=== PATIENT | male | born 2000 | race African-American/Black ===

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

== ENCOUNTER 2020-01-09 | Emergency (ER) | payer SELFPAY | END 2020-01-09 03:35 | disposition home or self-care (01) | DX: S02.40CA Maxillary fracture, right side, initial encounter for closed fracture (principal); S02.2XXA Fracture of nasal bones, initial encounter for closed fracture; M54.2 Cervicalgia; M79.641 Pain in right hand; S00.93XA Contusion of unspecified part of head, initial encounter; S00.432A Contusion of left ear, initial encounter; S00.431A Contusion of right ear, initial encounter; R51 Headache; Y04.0XXA Assault by unarmed brawl or fight, initial encounter; Z87.891 Personal history of nicotine dependence; Y93.01 Activity, walking, marching and hiking; Y92.410 Unspecified street and highway as the place of occurrence of the external cause | CPT/HCPCS: 70450; 70486; 71045; 72125; 73140; 80053; 80320; 81001; 85025; J1885; J7030 ==